=== PATIENT | female | born 1950 | race Caucasian/White ===

== ENCOUNTER 2018-01-20 07:16 | Day surgery (SDC) | payer MEDICARE, BC ==
[~2018-01-20] VITALS: Ht 162.6 cm; Wt 70.0 kg
[2018-01-20 07:34] VITALS: BP 133/66; PULSE 102; TEMP 97.8
[2018-01-20] MEDS ORDERED: ALEVE 220MG220 MG PO (07:49)
[2018-01-20] MEDS ORDERED: TRIAMCINOLONE AC0.13 TOP (07:49)
[2018-01-20 08:15] VITALS: BP 107/46; PULSE 88
[2018-01-20 08:30] VITALS: BP 92/55; PULSE 74
[2018-01-20 08:45] VITALS: BP 84/50; PULSE 76
[2018-01-20 09:00] VITALS: BP 101/41; PULSE 81
== END 2018-01-20 09:19 | disposition home or self-care (01) ==
LOC: SDCO 07:16
DX: Z12.11 Encounter for screening for malignant neoplasm of colon (principal); Z86.010 Personal history of colon polyps; K57.30 Diverticulosis of large intestine without perforation or abscess without bleeding; Z86.718 Personal history of other venous thrombosis and embolism; E78.00 Pure hypercholesterolemia, unspecified; K64.9 Unspecified hemorrhoids
CPT/HCPCS: J2250; J2405; J3010

== ENCOUNTER → 2018-02-12 | Outpatient (CLI) | payer MEDICARE, BC ==
[~2018-02-12] MED LIST: ALEVE 220MG220 MG PO; TRIAMCINOLONE AC0.13 TOP
== END ==
LOC: MC.RAD 01-20 06:44
DX: Z12.31 Encounter for screening mammogram for malignant neoplasm of breast (principal)

== ENCOUNTER → 2019-02-24 | Outpatient (CLI) | payer MEDICARE, BC | LOC: MC.RAD 11:27 | DX: Z12.31 Encounter for screening mammogram for malignant neoplasm of breast (principal) ==

== ENCOUNTER → 2020-02-28 | Outpatient (CLI) | payer MEDICARE, BC | LOC: MC.RAD 10:00 | DX: Z12.31 Encounter for screening mammogram for malignant neoplasm of breast (principal) ==

== ENCOUNTER → 2021-03-01 | Outpatient (CLI) | payer MEDICARE, BC | LOC: MC.RAD 11:09 | DX: Z12.31 Encounter for screening mammogram for malignant neoplasm of breast (principal) ==

== ENCOUNTER → 2022-03-19 | Outpatient (CLI) | payer MEDICARE, BC | LOC: MC.RAD 10:45 | DX: Z12.31 Encounter for screening mammogram for malignant neoplasm of breast (principal) ==

== ENCOUNTER → 2023-03-23 | Outpatient (CLI) | payer MEDICARE, BC | LOC: MC.RAD 08:48 | DX: Z12.31 Encounter for screening mammogram for malignant neoplasm of breast (principal) ==